=== PATIENT | male | born 1980 | race Caucasian/White ===

== ENCOUNTER → 2020-02-09 | Outpatient (CLI) | payer OTHER ==
--- NOTE | 2020-02-09 16:32 | XR ---
EXAMINATION TYPE: XR lumbar spine 2 or 3V DATE OF EXAM: 02/09/2020 COMPARISON: Pain on right side HISTORY: Pain on right side TECHNIQUE: Three-view lumbar spine FINDINGS: There 5 lumbar-type vertebral bodies. Pedicles are intact. Disc space narrowing is present L4-5 and L5-S1. Remaining disc heights are preserved. Vertebral body heights are preserved. IMPRESSION: 1. Degenerative disc changes lower lumbar spine
--- NOTE | 2020-02-09 16:33 | XR ---
EXAMINATION TYPE: XR thoracic spine complete DATE OF EXAM: 02/09/2020 COMPARISON: None HISTORY: Back pain TECHNIQUE: Three-view thoracic spine FINDINGS: Mild degenerative disc changes are present. Spondylosis is present. There are 12 thoracic type humeral bodies. The pedicles are intact. Vertebral body heights are preser shanice. IMPRESSION: 1. Mild degenerative disc change lower thoracic spine.
== END | disposition home or self-care (01) ==
LOC: RADXRMAIN 15:52
PROVIDERS: ATTEND Emergency Medicine
DX: M51.36 Other intervertebral disc degeneration, lumbar region (principal); M51.34 Other intervertebral disc degeneration, thoracic region; R20.9 Unspecified disturbances of skin sensation
CPT/HCPCS: 72072; 72100

== ENCOUNTER → 2021-02-06 | Outpatient (CLI) | payer OTHER ==
--- NOTE | 2021-02-06 14:19 | XR ---
EXAMINATION TYPE: XR lumbar spine 2 or 3V DATE OF EXAM: 02/06/2021 CLINICAL HISTORY: Injury with pain. TECHNIQUE: Frontal and lateral images of the lumbar spine are obtained. COMPARISON: Prior lumbar spine x-ray February 09, 2020 FINDINGS: There are 5 lumbar type vertebral bodies identified. Transitional L6 vertebra. Alignment s table and satisfactory. Vertebral body heights remain within normal limits. Mild to moderate disc spa ce narrowing at L5 -L6 and L6- S1 levels redemonstrated. The overlying soft tissue appears unremarka ble. IMPRESSION: As above. No significant change from prior.
--- NOTE | 2021-02-06 14:21 | XR ---
EXAMINATION TYPE: XR thoracic spine complete DATE OF EXAM: 02/06/2021 CLINICAL HISTORY: Pain after lifting injury. TECHNIQUE: Frontal, lateral, and swimmer's view of thoracic spine are obtained. COMPARISON: Thoracic spine x-ray February 09, 2020. FINDINGS: Thoracic spine show stable satisfactory alignment without evidence of acute fracture or dis location. Vertebral body heights and disc space heights are preserved. Mild/moderate multilevel ante rior and lateral spurring is redemonstrated. Visualized ribs are intact bilaterally. IMPRESSION: No acute fracture or dislocation is seen in the thoracic spine. No significant change fr om prior.
== END | disposition home or self-care (01) ==
LOC: RADXRMAIN 13:45
PROVIDERS: ATTEND Emergency Medicine
DX: S29.9XXA Unspecified injury of thorax, initial encounter (principal); S39.92XA Unspecified injury of lower back, initial encounter; M51.37 Other intervertebral disc degeneration, lumbosacral region
CPT/HCPCS: 72072; 72100